=== PATIENT | male | born 1945 | race Caucasian/White ===

== ENCOUNTER 2025-01-03 22:16 | Emergency (ER) | payer MEDICARE, BC ==
[~2025-01-03] VITALS: Ht 182.9 cm; Wt 110.8 kg
--- NOTE | 2025-01-03 22:53 | Physician Documentation ---
History of Present Illness ~ Chief Complaint: Leg Pain Stated Complaint: LEG PAIN Time Seen by MD: 22:46 Primary Medical Doctor: Stacy Gaming [facility] Patient presents to the emergency room for evaluation of right leg pain of sudden onset this evening. No prior instances no traumas no travel. He is not on blood thinners. No unusual activities. No weakness Medication Reconciliation Allergies: Coded Allergies: No Known Allergies (Unverified , 01/03/25) Past Medical History Past Medical History: No Pertinent History Review of Systems ROS All review of systems negative except as per HPI Physical Exam Vital Signs: Temperature: 97.6, Source: Temporal, Heart Rate: 77, Respiratory Rate: 15, BP: 152/99, Pulse Oximetry: 99, Weight: 110.750 Physical Exam General: Patient is awake, alert, oriented x4 in no acute distress Head: Normocephalic and atraumatic. Eyes: Conjunctival normal. EOMI. PERRL. ENT: Mucous membranes moist. Neck: Supple, trachea is midline. Chest: Clear to auscultation bilaterally without rales, rhonchi, or wheezes. There is no accessory muscle use or retractions. Cardiac: RRR without murmurs, gallops, or rubs. Extremities: Normal strength. Normal range of motion. Positive tenderness to palpation to right calf. No erythema Progress Results/Orders Results/Orders Completed Orders - OVIDIO KWAN MD Ketorolac Trometh 15mg/Ml Vial (Toradol (01/03/25 22:55) Acetaminophen 325mg Tablet (Tylenol Tabl (01/03/25 22:55) Vital Signs 01/03/25 22:24 Temp 97.6 Pulse 77 Resp 15 B/P (MAP) 152/99 Pulse Ox 99 Medical Decision Making Findings Patient presented to the emergency room with right lower extremity pain as per [facility]. Differentials include but are not limited to Conklin's cyst, DVT, septic ar thritis, cellulitis. Given my concerns an ultrasound was performed which confirmed diagnosis of Conklin's cyst. Analgesia discussed. Departure Disposition: HOME / SELF CARE / HOMELESS Impression: Primary Impression: Conklin cyst Condition: Stable Discharge Instructions: Conklin Cyst, RICE Therapy for Routine Care of Injuries, [id number] Referrals: NO PRIMARY CARE PROVIDER (PCP) Prescriptions Hydrocodone Bit/Acetaminophen 5/325 MG (Coello 5/325 MG) 5 Mg/325 Mg Tablet 1 TAB PO Q4-6 hours PRN for pain, #12 TAB Prov: OVIDIO KWAN MD 01/03/25 Education Educated: Patient Educated regarding: diagnosis, treatment, need for follow up Signature Scribe Signature: No scribe Attestation: The note accurately reflects work and decisions made by me.Ovidio Kwan MD 01/03/25 23:56 OVIDIO KWAN MD Jan 03, 2025 22:53
[2025-01-03] MEDS: ketorolac trometh 15mg/ml vial 15 MG/ML ML IM ONE (23:55)
[2025-01-03] MEDS ORDERED: HYDR-3965 PO (23:56)
--- NOTE | 2025-01-03 23:59 | VASCULAR REPORT ---
Right lower extremity venous duplex Clinical History: Right lower extremity pain Comparison: None Technique: Duplex Doppler evaluation of the deep venous system of the right lower extremity from the common femo ral vein to the popliteal vein including color Doppler and spectral/pulsed waveform analysis was perf ormed. Findings: The common femoral vein demonstrates appropriate compressibility and waveform variability. There is compressibility/patency of the great saphenous vein at the proximal thigh. The femoral vein demonstrates appropriate compressibility and waveform variability. The deep femoral vein demonstrates appropriate compressibility and waveform variability. The popliteal vein demonstrates appropriate compressibility and waveform variability. There is normal compressibility at the tibioperoneal trunk. Probable popliteal cyst measuring 2.9 x 1.7 cm. Impression: 1. No right femoropopliteal venous thrombosis. 2. Contralateral common femoral vein is patent. 3. Probable right popliteal cyst.
[2025-01-04] VITALS: BP 150/98; PULSE 78; RESP 16; TEMP 97.6; O2SAT 99
== END 2025-01-04 00:05 | disposition home or self-care (01) ==
LOC: ER 22:16
DX: M71.21 Synovial cyst of popliteal space [Baker], right knee (principal)
CPT/HCPCS: 93971; 96372; 99285; J1885